=== PATIENT | female | born 1960 | race Caucasian/White ===

== ENCOUNTER → 2016-11-15 | Outpatient (CLI) | payer BC, OTHER ==
[~2016-11-15] MED LIST: CELEXA10 MG PO; ESTRACE0.1 MG/GM VG; LOPRESSOR 225 MG/TAB PO; MACROBID 1100 MG/CAP PO; MVI; NIFEREX-150 FOR1 CA1 PO; NORCO 325 MG-51 TAB PO; PRILOSEC 20MG20 MG PO
== END ==
LOC: MC.RAD 16:48
DX: Z12.31 Encounter for screening mammogram for malignant neoplasm of breast (principal)

== ENCOUNTER → 2016-12-06 | Outpatient (CLI) | payer OTHER, BC | LOC: MHCPAIN 08:08 | DX: G56.92 Unspecified mononeuropathy of left upper limb (principal) | CPT/HCPCS: G0463 ==

== ENCOUNTER 2017-01-31 16:00 | Outpatient (RCR) | payer OTHER, BC | END 2017-02-06 | disposition home or self-care (01) | LOC: WSOT | DX: S52.592D Other fractures of lower end of left radius, subsequent encounter for closed fracture with routine healing (principal); X58.XXXD Exposure to other specified factors, subsequent encounter ==

== ENCOUNTER → 2017-03-01 | Outpatient (CLI) | payer BC, OTHER | LOC: MHCPAIN 10:00 | DX: G89.29 Other chronic pain (principal); M79.2 Neuralgia and neuritis, unspecified | CPT/HCPCS: G0463 ==

== ENCOUNTER → 2017-03-16 | Outpatient (CLI) | payer BC, OTHER | LOC: MHCPAIN 08:00 | DX: M79.2 Neuralgia and neuritis, unspecified (principal) | CPT/HCPCS: Q9967 ==

== ENCOUNTER → 2017-03-29 | Outpatient (CLI) | payer OTHER, BC | LOC: MHCPAIN 12:19 | DX: G89.29 Other chronic pain (principal); M25.532 Pain in left wrist | CPT/HCPCS: G0463 ==

== ENCOUNTER → 2017-05-08 | Outpatient (RCR) | payer OTHER, BC | END | disposition home or self-care (01) | LOC: WSOT | DX: S52.592D Other fractures of lower end of left radius, subsequent encounter for closed fracture with routine healing (principal); X58.XXXA Exposure to other specified factors, initial encounter ==

== ENCOUNTER 2017-06-22 16:00 | Outpatient (RCR) | payer OTHER, BC | END 2017-06-28 15:46 | disposition home or self-care (01) | LOC: WSOT 16:00 | DX: S52.502D Unspecified fracture of the lower end of left radius, subsequent encounter for closed fracture with routine healing (principal); Z98.1 Arthrodesis status ==

== ENCOUNTER → 2017-11-15 | Outpatient (CLI) | payer BC, OTHER | LOC: MC.RAD 13:30 | DX: Z12.31 Encounter for screening mammogram for malignant neoplasm of breast (principal) ==

== ENCOUNTER 2018-04-27 10:43 | Emergency (ER) | payer BC, OTHER ==
[2018-04-27 11:27] LABS: BASO # 0.1 (0.0-0.2); EOS # 0.2 (0.0-0.7); EOS % 2.7 % (0-4.0); GRAN # 2.5 (1.4-6.5); HEMATOCRIT 41.2 % (37.0-47.0); HEMOGLOBIN 13.9 g/dl (12.5-16.0); LYMPH # 2.8 (1.2-3.4); LYMPH % 47.3 % (20.0-51.0); MEAN CELL VOLUME 89 fl (80.0-100.0); MEAN CORPUSCULAR HEMOGLOBIN 30 pg (27.0-31.0); MEAN CORPUSCULAR HGB CONC 34 g/dl (33.0-37.0); MEAN PLATELET VOLUME 10.8 fl (7.4-10.4); MONO # 0.3 (0.1-0.6); MONO % 5.8 % (1.7-9.3); PLATELET COUNT 213 K/mm3 (130-400); RED BLOOD COUNT 4.65 M/mm3 (4.10-5.30); REDCELL DISTRIBUTION WIDTH-CV 11.9 % (11.5-14.5)
[2018-04-27 11:33] LABS: INR 0.9 (0.8-3.0); PROTHROMBIN TIME 10.4 SECONDS (9.7-12.8)
[2018-04-27 11:36] LABS: PARTIAL THROMBOPLASTIN TIME 31.6 SECONDS (26.0-37.0)
[2018-04-27 11:41] LABS: ALANINE AMINOTRANSFERASE 39 U/L (9-52); ALBUMIN 4.1 gm/dL (3.5-5.0); ALKALINE PHOSPHATASE 114 U/L (50-136); ANION GAP 13 mmol/L (7-16); AST,SGOT 36 U/L (15-37); BILIRUBIN,TOTAL 0.4 mg/dL (0.0-1.0); BLOOD UREA NITROGEN 15 mg/dL (7-17); CALCIUM 9.1 mg/dL (8.4-10.2); CARBON DIOXIDE 25 mmol/L (22-30); CHLORIDE 99 mmol/L (98-107); CREATININE, serum 0.87 mg/dL (0.52-1.25); GLUCOSE 110 mg/dL (74-106); POTASSIUM 3.7 mmol/L (3.4-5.0); SODIUM 138 mmol/L (137-145); TOTAL PROTEIN 7.6 gm/dL (6.4-8.2)
[2018-04-27 11:55] LABS: TROPONIN-I < 0.012 ng/mL (0.000-0.034)
[2018-04-27] MEDS ORDERED: PAMELOR 25MG25 MG PO (11:59)
[2018-04-27] MEDS ORDERED: LIPITOR 10MG10 MG PO (11:59)
[2018-04-27] MEDS ORDERED: ADVIL200 MG PO (12:01)
[2018-04-27] MEDS ORDERED: VITAMINC1000TA PO (12:02)
[2018-04-27] MEDS ORDERED: EPA FISH OIL1 SGL PO (12:02)
[2018-04-27 14:52] VITALS: BP 134/77; PULSE 67
== END 2018-04-27 14:55 | disposition home or self-care (01) ==
LOC: COL.ER 10:43
PROVIDERS: Family Medicine
DX: R07.89 Other chest pain (principal)

== ENCOUNTER → 2018-05-25 | Outpatient (CLI) | payer BC, OTHER ==
[~2018-05-25] MED LIST changes: +ADVIL200 MG PO; +EPA FISH OIL1 SGL PO; +LIPITOR 10MG10 MG PO; +PAMELOR 25MG25 MG PO; +VITAMINC1000TA PO
== END ==
LOC: COL.RAD 13:30
DX: K76.0 Fatty (change of) liver, not elsewhere classified (principal)

== ENCOUNTER → 2018-06-08 | Outpatient (CLI) | payer BC, OTHER | LOC: COL.RAD 11:27 | DX: R10.13 Epigastric pain (principal) | CPT/HCPCS: A9537 ==

== ENCOUNTER → 2018-12-10 | Outpatient (CLI) | payer BC, OTHER | LOC: MC.RAD 14:41 | DX: Z12.31 Encounter for screening mammogram for malignant neoplasm of breast (principal) ==

== ENCOUNTER → 2020-01-03 | Outpatient (CLI) | payer BC, OTHER | LOC: MC.RAD 07:41 | DX: Z12.31 Encounter for screening mammogram for malignant neoplasm of breast (principal) ==

== ENCOUNTER → 2021-02-02 | Outpatient (CLI) | payer BC, OTHER | LOC: MC.RAD 16:52 | DX: Z12.31 Encounter for screening mammogram for malignant neoplasm of breast (principal) ==

== ENCOUNTER → 2022-02-22 | Outpatient (CLI) | payer BC, OTHER | LOC: MC.RAD 07:42 | DX: Z12.31 Encounter for screening mammogram for malignant neoplasm of breast (principal) ==

== ENCOUNTER → 2022-07-14 | Outpatient (CLI) | payer BC, OTHER | LOC: MC.RAD 10:27 | DX: N64.4 Mastodynia (principal) ==

== ENCOUNTER → 2023-04-04 | Outpatient (CLI) | payer BC, OTHER | LOC: MC.RAD 13:41 | DX: Z12.31 Encounter for screening mammogram for malignant neoplasm of breast (principal) ==

== ENCOUNTER → 2024-04-05 | Outpatient (CLI) | payer BC, OTHER | LOC: MC.RAD 11:19 | DX: Z12.31 Encounter for screening mammogram for malignant neoplasm of breast (principal); N64.89 Other specified disorders of breast ==